=== PATIENT | male | born 1990 | race Caucasian/White ===

== ENCOUNTER 2017-09-30 11:09 | Emergency (ER) | END 2017-09-30 15:17 | disposition home or self-care (01) ==

== ENCOUNTER 2017-10-02 07:58 | Emergency (ER) | END 2017-10-02 08:57 | disposition home or self-care (01) ==

== ENCOUNTER 2017-10-08 09:58 | Emergency (ER) | END 2017-10-08 10:29 | disposition home or self-care (01) ==

== ENCOUNTER 2017-10-11 13:59 | Emergency (ER) | END 2017-10-11 14:31 | disposition home or self-care (01) ==